=== PATIENT | female | born 1995 | race African-American/Black ===

== ENCOUNTER → 2020-01-24 | Outpatient (CLI) | payer OTHER | LOC: M LABSMTC 11:48 | PROVIDERS: ATTEND Family Medicine | DX: Z11.59 Encounter for screening for other viral diseases (principal); Z20.828 Contact with and (suspected) exposure to other viral communicable diseases ==

== ENCOUNTER 2020-10-19 02:28 | Emergency (ER) | payer OTHER ==
[~2020-10-19] VITALS: Ht 157.5 cm; Wt 134.6 kg
--- OUTSIDE RECORDS SUMMARY | 2020-10-19 02:38 | CCD | Continuity of Care Document ---
Author Author Marya MATIAS [facility] Organization Unknown Address [facility] [address] [place] [address] Phone [phone] Problems Active Problems Provider Date Family problems Arian Matias LCSW Onset: 06/26/2020 Major depressive disorder, single episode, unspecified Otoniel Matias LCSW Onset: 06/26/2020 Tobacco user Arian Matias LCSW Onset: 10/12/2020 Social History Type Date Description Comments Sex Unknown Allergies, Adverse Reactions, Alerts Active Allergies Reaction Severity Comments Date NKDA 07/11/2020 NKEA 07/11/2020 Kiwi 07/11/2020 Medications Active Medications SIG Qnty Indications Ordering Provide r Date Fluoxetine HCL 10mg Capsules 1 by mouth every day, Add To 20MG Daily To Total 30MG Daily. 30caps F32.9 Sylvester Gonzalez MD 09/06/2020 Fluoxetine HCL 20mg Capsules 1 by mouth every day 30caps F32.9 Sylvester Gonzalez MD 08/03/2020 History Medications No Active Medications Mile Ruiz RN 07/11/2020 - 08/03/2020 Immunizations Description No Information Available Vital Signs Date Vital Result Comment 07/11/2020 10:04am BP Systolic Sitting 144 mmHg BP Diastolic Sitting 89 mmHg Heart Rate 94 /min Body Temperature 98.2 F Oral Respiratory Rate 16 /min O2 % BldC Oximetry 100 % Weight 295.25 lb Weight 133.925 kg Height 62.5 inches 5'2.50" BMI (Body Mass Index) 53.1 kg/m2 BSA (Body Surface Area) 2.27 m2 Results Test Acquired Date Facility Test Result H/L Range Note [facility] 13 07/11/2020 Bobby benson Summary Report (Summary) FINAL 1, 2 PDF . 1 {DIAGNOSIS: F32.9~{MEDICATI ONS/DECLARED: NO MEDICATIONS DECLARED~{PRESCRIPTION INFO:~{PRESCRIPT 2 TOXASSURE SELECT 13 (MW) Test Result Flag Units Drug Present not Declared for Prescription Verification Carboxy-THC 50 UNEXPECTED ng/mg creat Carboxy-THC is a metabolite of tetrahydrocannabinol (THC). Source of THC is most commonly illicit, but THC is also present in a scheduled prescription medication. Test Result Flag Units Ref Range Creatinine 232 mg/dL >=20 Declared Medications: The flagging and interpretation on this report are based on the following declared medications. Unexpected results may arise from inaccuracies in the declared medications. No medication use reported. For clinical consultation, please call . Procedures Date Code Description Status 08/03/2020 33465 Psychiatric Diag Eval W/Medical Service Completed 06/26/2020 74174 Psychiatric Diagnostic Evaluatio n Completed Medical Devices Description No Information Available Encounters Description No Information Available Assessments Date Code Description Provider 10/12/2020 F32.9 Major depressive disorder, singl e episode, unspecified Arian Polly, [facility] 10/12/2020 Z63.0 Problems in relationship with sp ouse or partner Arian Polly, [facility] 10/12/2020 F17.210 Nicotine dependence, cigarettes, uncomplicated Arian Polly, [facility] 09/11/2020 F32.9 Major depressive disorder, singl e episode, unspecified Arian Polly, [facility] 09/11/2020 Z63.0 Problems in relationship with sp ouse or partner Arian [place], [facility] 09/06/2020 F32.9 Major depressive disorder, singl e episode, unspecified Diego Tucker PA-C 08/03/2020 F32.9 Major depressive disorder, singl e episode, unspecified Arian Polly, [facility] 08/03/2020 F32.9 Major depressive disorder, singl e episode, unspecified Diego Tucker PA-C 08/03/2020 Z63.0 Problems in relationship with sp ouse or partner Arian [place], [facility] 07/20/2020 F32.9 Major depressive disorder, singl e episode, unspecified Arian [place], [facility] 07/20/2020 Z63.0 Problems in relationship with sp ouse or partner Arian Polly, [facility] 07/11/2020 F32.9 Major depressive disorder, singl e episode, unspecified Mile Ruiz, JACKIE 07/11/2020 Z63.0 Problems in relationship with sp ouse or partner Mile Ruiz RN 07/06/2020 F32.9 Major depressive disorder, singl e episode, unspecified Arian [place], [facility] 07/06/2020 Z63.0 Problems in relationship with sp ouse or partner Arian Matias, [facility] 06/26/2020 F32.9 Major depressive disorder, singl e episode, unspecified Arian Matias, [facility] 06/26/2020 Z63.0 Problems in relationship with sp ouse or partner Arian Matias LCSW Plan of Treatment Future Appointment(s):* 11/09/2020 1:00 pm - Arian Matias LCSW at [facility] * 11/14/2020 11:20 am - Diego Tucker PA-C at [facility] Functional Status Description No Information Available Mental Status Description No Information Available Referrals Description No Information Available
--- OUTSIDE RECORDS SUMMARY | 2020-10-19 02:38 | CCD ---
Author Author [facility] Organization [facility] Address Unknown Phone Unavailable Care Team Providers Care Casework Manager Name Role Phone GM ROONEY Unavailable Unavailable MED[facility]_[id number], [phone] Unavailable Unavailable Solitario Gonzalez MD Unavailable Unavailable Solitario Gonzalez MD Unavailable Unavailable Solitario Gonzalez MD Unavailable Unavailable Solitario Gonzalez MD Unavailable Unavailable Solitario Gonzalez MD Unavailable Unavailable Solitario Gonzalez MD Unavailable Unavailable Solitario Gonzalez MD Unavailable Unavailable Solitario Gonzalez MD Unavailable Unavailable Solitario Gonzalez MD Unavailable Unavailable Solitario Gonzalez MD Unavailable Unavailable Solitario Gonzalez MD Unavailable Unavailable Solitario Gonzalez MD Unavailable Unavailable Solitario Gonzalez MD Unavailable Unavailable Solitario Gonzalez MD Unavailable Unavailable Solitario Gonzalez MD Unavailable Unavailable Solitario Gonzalez MD Unavailable Unavailable Solitario Gonzalez MD Unavailable Unavailable Solitario Gonzalez MD Unavailable Unavailable Solitario Gonzalez MD Unavailable Unavailable Solitario Gonzalez MD Unavailable Unavailable Solitario Gonzalez MD Unavailable Unavailable Solitario Gonzalez MD Unavailable Unavailable Solitario Gonzalez MD Unavailable Unavailable Solitario Gonzalez MD Unavailable Unavailable Solitario Gonzalez MD Unavailable Unavailable Solitario Gonzalez MD Unavailable Unavailable Solitario Gonzalez MD Unavailable Unavailable CHE, J SUSANNA PA Unavailable Unavailable CHE, J SUSANNA PA Unavailable Unavailable CHE, J SUSANNA PA Unavailable Unavailable CHE, J SUSANNA PA Unavailable Unavailable CHE, J SUSANNA PA Unavailable Unavailable CHE, J SUSANNA PA Unavailable Unavailable CHE, J SUSANNA PA Unavailable Unavailable CHE, J SUSANNA PA Unavailable Unavailable CHE, J SUSANNA PA Unavailable Unavailable CHE, J SUSANNA PA Unavailable Unavailable CHE, J SUSANNA PA Unavailable Unavailable CHE, J SUSANNA PA Unavailable Unavailable CHE, J SUSANNA PA Unavailable Unavailable CHE, J SUSANNA PA Unavailable Unavailable CHE, J SUSANNA PA Unavailable Unavailable CHE, J SUSANNA PA Unavailable Unavailable CHE, J SUSANNA PA Unavailable Unavailable CHE, J SUSANNA PA Unavailable Unavailable CHE, J SUSANNA PA Unavailable Unavailable CHE, J SUSANNA PA Unavailable Unavailable CHE, J SUSANNA PA Unavailable Unavailable CHE, J SUSANNA PA Unavailable Unavailable CHE, J SUSANNA PA Unavailable Unavailable CHE, J SUSANNA PA Unavailable Unavailable CHE, J SUSANNA PA Unavailable Unavailable CHE, J SUSANNA PA Unavailable Unavailable CHE, J SUSANNA PA Unavailable Unavailable NON, PHYSICIAN STAFF Unavailable Unavailable CHE, J SUSANNA PA Unavailable Unavailable CHE, J SUSANNA PA Unavailable Unavailable CHE, J SUSANNA PA Unavailable Unavailable CHE, J SUSANNA PA Unavailable Unavailable CHE, J SUSANNA PA Unavailable Unavailable CHE, J SUSANNA PA Unavailable Unavailable CHE, J SUSANNA PA Unavailable Unavailable CHE, J SUSANNA PA Unavailable Unavailable CHE, J SUSANNA PA Unavailable Unavailable CHE, J SUSANNA PA Unavailable Unavailable CHE, J SUSANNA PA Unavailable Unavailable CHE, J SUSANNA PA Unavailable Unavailable CHE, J SUSANNA PA Unavailable Unavailable CHE, J SUSANNA PA Unavailable Unavailable CHE, J SUSANNA PA Unavailable Unavailable CHE, J SUSANNA PA Unavailable Unavailable CHE, J SUSANNA PA Unavailable Unavailable CHE, J SUSANNA PA Unavailable Unavailable CHE, J SUSANNA PA Unavailable Unavailable CHE, J SUSANNA PA Unavailable Unavailable CHE, J SUSANNA PA Unavailable Unavailable CHE, J SUSANNA PA Unavailable Unavailable Liyah CHEEB PA Unavailable Unavailable Liyah CHEEB PA Unavailable Unavailable Liyah CHEEB PA Unavailable Unavailable Liyah CHEEB PA Unavailable Unavailable Liyah CHEEB PA Unavailable Unavailable Re-disclosure Warning The records that you are about to access may contain information from federally-assisted alcohol or drug abuse programs. If such information is present, then the following federally mandated warning applies: This information has been disclosed to you from records protected by federal confidentiality rules (42 CFR part 2). The federal rules prohibit you from making any further disclosure of this information unless further disclosure is expressly permitted by the written consent of the person to whom it pertains or as otherwise permitted by 42 CFR part 2. A general authorization for the release of medical or other information is NOT sufficient for this purpose. The Federal rules restrict any use of the information to criminally investigate or prosecute any alcohol or drug abuse patient.The records that you are about to access may contain highly sensitive health information, the redisclosure of which is protected by Article 27-F of the [facility] Public Health law. If you continue you may have access to information: Regarding HIV / AIDS; Provided by facilities licensed or operated by the [facility] Office of Mental Health; or Provided by the [facility] Office for People With Developmental Disabilities. If such information is present, then the following [facility] mandated warning applies: This information has been disclosed to you from confidential records which are protected by state law. State law prohibits you from making any further disclosure of this information without the specific written consent of the person to whom it pertains, or as otherwise permitted by law. Any unauthorized further disclosure in violation of state law may result in a fine or longterm sentence or both. A general authorization for the release of medical or other information is NOT sufficient authorization for further disc losure. Allergies and Adverse Reactions Type Description Substance Reaction Status Data Source(s ) No Known Allergies No Known Allergies [facility] Encounters Encounter Providers Location Date Indications Data Source(s ) Outpatient Attender: GM ROONEYConsultant: STAFF NON 10/12/2020 01:02:00 PM EST - 10/12/2020 01:02:00 PM [facility] Outpatient Attender: SUSANNA aranda: Sylvester Gonzalez MDConsultant: STAFF NON 09/11/2020 02:07:00 PM EST - 09/11/2020 02:07:00 PM EST [facility] Outpatient Attender: SUSANNA Queen aranda: Sylvester Gonzalez MDConsultant: STAFF NON 09/06/2020 12:45:00 PM EST - 09/06/2020 12:45:00 PM EST [facility] Outpatient Attender: SUSANNA MYERS [facility] 09/06 11:40:00 AM EST [facility] Outpatient Attender: GM Hernandez rrer: Sylvester Gonzalez MDConsultant: STAFF NON 08/03/2020 10:54:00 AM EDT - 08/03/2020 10:54:00 AM EDT [facility] Outpatient Attender: SUSANNA stricklandr: Sylvester Gonzalez MDConsultant: STAFF NON 08/03/2020 10:01:00 AM EDT - 08/03/2020 10:01:00 AM EDT [facility] Outpatient Attender: GM Flynnsultant: STAFF NON 07/20/2020 12:56:00 PM EDT - 07/20/2020 12:56:[address] [facility] Outpatient Attender: SUSANNA Queen aranda: Sylvester Gonzalez MDConsultant: STAFF NON 07/11/2020 10:02:00 AM EDT - 07/11/2020 10:02:00 AM EDT [facility] Outpatient Attender: [id number] [id number] 07/11/2020 10:00:00 AM EDT [facility] ([facility] Outpatient Attender: GM Hernandez rrer: Sylvester Gonzalez MDConsultant: STAFF NON 07/06/2020 10:03:00 AM EDT - 07/06/2020 10:03:00 AM EDT [facility] Outpatient Attender: GM Hernandez rrer: Sylvester Gonzalez MDConsultant: STAFF NON 06/26/2020 08:58:00 AM EDT - 06/26/2020 08:58:00 AM EDT [facility] Medications Medication Brand Name Start Date Product Form Dose Route Admi nistrative Instructions Pharmacy Instructions Status Indications Reaction Description Data Source(s) Fluoxetine 10 MG Oral Capsule Fluoxetine HCL 09/06/2020 12:00:[address] ORAL active [facility] ([facility]) Fluoxetine 20 MG Oral Capsule Fluoxetine HCL 08/03/2020 12:00:00 AM E DT ORAL active [facility] ([facility]) 20 mg 08/03/2020 12:00:00 AM EDT capsule 30 TAKE ONE CAPSULE BY MOUTH EVERY DAY TAKE ONE CAPSULE BY MOUTH EVERY DAY SOLD: 08/18/2020 [facility] No Active Medications 07/11/2020 12:00:00 AM EDT completed [facility] ([facility]) 800 mg 05/10/2020 12:00:00 AM EDT tablet 20 TAKE ONE TABLET BY MOUTH EVERY 6 HOURS NEEDED FOR PAIN TAKE ONE TABLET BY MOUTH EVERY 6 HOURS A S NEEDED FOR PAIN SOLD: 05/10/2020 [facility] 5-325 mg 05/10/2020 12:00:00 AM EDT tablet 10 TAKE ONE TABLET BY MOUTH EVERY 6 HOURS NEEDED FOR PAIN MAXIMUM DAILY DOSE = FOUR TABLETS TAKE ONE TABLET BY MOUTH EVERY 6 HOURS NEEDED FOR PAIN MAXIMUM DAILY DOSE = FOUR TABLETS SOLD: 05/10/2020 [facility] 800 mg 01/04/2020 12:00:00 AM EDT tablet 20 TAKE 1 TABLET BY MOUTH EVERY 6 HOURS NEEDED FOR PAIN TAKE 1 TABLET BY MOUTH EVERY 6 HOURS NEEDED FOR PAIN SOLD: 01/04/2020 [facility] 500 mg 01/04/2020 12:00:00 AM EDT tablet 21 TAKE 1 TABLET BY MOUTH EVERY 8 HOURS UNTIL FINISHED TAKE 1 TABLET BY MOUTH EVERY 8 HOURS UNTIL FINISHED SO LD: 01/04/2020 [facility] 0.12 % 01/04/2020 12:00:00 AM EDT mouthwash 473 SWISH AND SPIT 15 ML'S BY MOUTH FOR 30 SECONDS FOUR TIMES DAILY SWISH AND SPIT 15 ML'S BY MOUTH FOR 30 SECONDS FOUR TIMES DAILY SOLD: 01/04/2020 [facility] 5-325 mg 01/04/2020 12:00:00 AM EDT tablet 16 TAKE 1 TABLET BY MOUTH EVERY 6 HOURS NEEDED FOR PAIN MAX = 4 TABS/DAY TAKE 1 TABLET BY MOUTH EVERY 6 HOURS NEEDED FOR PAIN MAX = 4 TABS/DAY SOLD: 01/04/2020 [facility] Insurance Providers Payer name Policy type / Coverage type Policy ID Covered republican ID Covered republican's relationship to ring Policy Ring Plan Information [facility] [employer] [id number] [id number] [place] [id number] 18 [id number] [facility] [place] [place] [id number] 18 [id number] [facility] [employer] [id number] SP [id number] [facility] [employer] [id number] SP [id number] [employer] [place] [id number] HU2 [id number] [employer] [place] O [id number] S [id number] [place] [employer] [place] -I/P [id number] 01 [id number] N [employer]AL CLAIMS [place] -O/P [id number] 01 [id number] Problems, Conditions, and Diagnoses Code Display Name Description Problem Type Effective Dates Data Source(s) 500640324 Tobacco user Tobacco user Problem 10/12/2020 12:00:00 A M EST [facility] ([facility]) Major depressive disorder, single episod e, unspecified Major depressive disorder, single episode, unspecified Problem 06/26/2020 12:00:00 AM EDT [facility] ([facility]) [id number] Family problems Family problems Problem 06/26/2020 12:0 0:00 AM EDT [facility] ([facility]) Z630 Problems in relationship with spouse or partner Problems in relationship with spouse or partner Diagnosis 09/11/2020 02:07:00 PM [facility] F329 Major depressive disorder, single episod e, unspecified Major depressive disorder, single episode, unspecified Diagnosis 09/11/2020 02:07:00 PM [facility] Surgeries/Procedures Procedure Description Date Indications Data Source(s) Psychiatric Diag Eval W/Medical Service 08/03/2020 12: 00:00 AM EDT [facility] ([facility]) Psychiatric Diagnostic Evaluation 06/26/2020 12:00:00 AM EDT [facility] ([facility]) Results ID Date Data Source [id number] 07/11/2020 10:42:00 AM EDT [facility] ([facility]) Name Value Range Interpretation Code Description Data Yris rce(s) Supporting Document(s) PDF Laboratory test result [facility] ([facility]) {DIAGNOSIS: F32.9~{MEDICATIONS/DECLARED : NO MEDICATIONS DECLARED~{PRESCRIPTION INFO:~{PRESCRIPT Laboratory test finding (navigational concept) Laboratory test result [facility] ([facility]) {DIAGNOSIS: F32.9~{MEDICATIONS/DECLARED : NO MEDICATIONS DECLARED~{PRESCRIPTION INFO:~{PRESCRIPT ID Date Data Source [id number] 07/17/2020 10:17:00 AM EDT [facility] Name Value Range Interpretation Code Description Data Yris rce(s) Supporting Document(s) Drugs identified in Urine FINAL [facility] TOXASSURE SELECT 13 (MW) Test Result Flag UnitsDrug Present not Declared for Prescription Verification Carboxy-THC 50 UNEXPECTED ng/mg creat Carboxy-THC is a metabolite of tetrahydrocannabinol ( THC). Source of THC is most commonly illicit, but THC is also present in a scheduled prescription medication. T est Result Flag Units Ref Range Creatinine 232 mg/dL >=20 Declared Medications: The flagging and interpretation on this report are based on the following declared medications. Unexpected results may arise from inaccuracies in the declared medications. No medication use reported. For clinical consultation, please call . Report . [facility] ID Date Data Source [id number] 01/24/2020 11:40:00 AM EDT [facility] Name Value Range Interpretation Code Description Data Yris rce(s) Supporting Document(s) SARS CORONAVIRUS 2 RNA [facility] This lab was ordered by [facility] and reported by [facility]. Procedure Vital Signs ID Date Data Source UNK Name Value Range Interpretation Code Description Data Source(s) Body surface area Derived from formula 2.27 m2 2.27 m2 [facility] Body mass index (BMI) [Ratio] 53.1 kg/m2 53.1 k g/m2 [facility] ([facility]) Body height 62.5 [in_i] 62.5 [in_i] [facility] ([facility]) 5'2.50" Body weight 133.925 kg 133.925 kg [facility] ([facility]) Body weight 295.25 [lb_av] 295.25 [lb_av] [facility] ([facility]) Oxygen saturation in Arterial blood by Pulse oximetry 100 % 100 % [facility] ([facility]) Respiratory rate 16 /min 16 /min [facility] ( [facility]) Body temperature 98.2 [degF] 98.2 [degF] [facility] ([facility]) Oral Heart rate 94 /min 94 /[facility] Diastolic blood pressure--sitting 89 mm[Hg] 89 mm[Hg] [facility] Systolic blood pressure--sitting 144 mm[Hg] 144 mm[Hg] [facility])
--- OUTSIDE RECORDS SUMMARY | 2020-10-19 02:38 | CCD | Continuity of Care Document ---
Author Author Marya TUCKER PA-C Organization Unknown Address [facility] [address] [place] [address] Phone [phone] Problems Active Problems Provider Date Family problems Arian Matias LCSW Onset: 06/26/2020 Major depressive disorder, single episode, unspecified Otoniel Matias LCSW Onset: 06/26/2020 Social History Type Date Description Comments Sex [...] . Procedures Date Code Description Status 08/03/2020 00496 Psychiatric Diag Eval W/Medical Service Completed 06/26/2020 06767 Psychiatric Diagnostic Evaluatio n Completed Medical Devices Description No Information Available Encounters Type Date Location Provider Dx Diagnosis Office Visit 09/06/2020 12:40p [facility] Diego Tucker PA-C F32.9 Major depressive disorder, single episode, unspecified Assessments Date Code Description Provider 09/06/2020 F32.9 Major depressive disorder, singl e episode, unspecified Diego Tucker PA-C 08/03/2020 F32.9 Major depressive disorder, singl e episode, unspecified Arian Polly, [employer] 08/03/2020 F32.9 Major depressive disorder, singl e episode, unspecified Diego Tucker PA-C 08/03/2020 Z63.0 Problems in relationship with sp ouse or partner Arian Wake, [employer] SU[employer] 07/20/2020 F32.9 Major depressive disorder, singl e episode, unspecified Arian Polly, [employer] 07/20/2020 Z63.0 Problems in relationship with sp ouse or partner Arian Wake, [employer] SUPER[employer] 07/11/2020 F32.9 Major depressive disorder, singl e episode, unspecified Mile Ruiz RN 07/11/2020 Z63.0 Problems in relationship with sp ouse or partner Mile Ruiz, JACKIE 07/06/2020 F32.9 Major depressive disorder, singl e episode, unspecified Arian Wake, [employer] 07/06/2020 Z63.0 Problems in relationship with sp ouse or partner Arian Wake, [employer] SUPER[employer]OR 06/26/2020 F32.9 Major depressive disorder, singl e episode, unspecified Arian Wake, [employer] SUPER[employer] 06/26/2020 Z63.0 Problems in relationship with sp ouse or partner Arian Wake, [employer] SUPER[employer]OR Plan of Treatment Future Appointment(s):* 09/11/2020 2:00 pm - Arian Matias LCSW at [facility] Functional Status Description No Information Available Mental Status Description No Information Available Referrals Description No Information Available
--- OUTSIDE RECORDS SUMMARY | 2020-10-19 02:38 | CCD | Continuity of Care Document ---
Author Author Marya TUCKER PA-C Organization Unknown Address [facility] [address] [place] [address] Phone [phone] Problems Active Problems Provider Date Family problems Arian Matias LCSW Onset: 06/26/2020 Major depressive disorder, single episode, unspecified Otoniel Matias LCSW Onset: 06/26/2020 Social History Type Date Description Comments Sex Unknown Allergies, Adverse Reactions, Alerts Active Allergies Reaction Severity Comments Date NKDA 07/11/2020 NKEA 07/11/2020 Kiwi 07/11/2020 Medications Active Medications SIG Qnty Indications Ordering Provide r Date Fluoxetine HCL 20mg Capsules 1 by mouth [...] . Procedures Date Code Description Status 08/03/2020 44216 Psychiatric Diag Eval W/Medical Service Completed 06/26/2020 58192 Psychiatric Diagnostic Evaluatio n Completed Medical Devices Description No Information Available Encounters Description No Information Available Assessments Date Code Description Provider 08/03/2020 F32.9 Major depressive disorder, singl e episode, unspecified Diego Tucker PA-C 07/20/2020 F32.9 Major depressive disorder, singl e episode, unspecified Arian [place], [facility] 07/20/2020 Z63.0 Problems in relationship with sp ouse or partner Arian Dearborn, [employer] 07/11/2020 F32.9 Major depressive disorder, singl e episode, unspecified Mile Ruiz RN 07/11/2020 Z63.0 Problems in relationship with sp ouse or partner Mile Ruiz RN 07/06/2020 F32.9 Major depressive disorder, singl e episode, unspecified Arian Polly, [employer] 07/06/2020 Z63.0 Problems in relationship with sp ouse or partner Arian Dearborn, [employer] CAL[employer] 06/26/2020 F32.9 Major depressive disorder, singl e episode, unspecified Arian Polly, [employer] CAL[employer]RATOR 06/26/2020 Z63.0 Problems in relationship with sp ouse or partner Arian Dearborn, [employer] CAL[employer]RATOR Plan of Treatment Future Appointment(s):* 09/06/2020 12:40 pm - Diego Tucker PA-C at [facility] * 08/17/2020 3:00 pm - Arian Matias LCSW at [facility] Functional Status Description No Information Available Mental Status Description No Information Available Referrals Description No Information Available
--- OUTSIDE RECORDS SUMMARY | 2020-10-19 02:38 | CCD | Continuity of Care Document ---
Author Author Marya MATIAS [facility] Organization Unknown Address [facility] [address] [place] [address] Phone [phone] Problems Active Problems Provider Date Family problems [...] . Procedures Date Code Description Status 08/03/2020 42276 Psychiatric Diag Eval W/Medical Service Completed 06/26/2020 68916 Psychiatric Diagnostic Evaluatio n Completed Medical Devices Description No Information Available Encounters Description No Information Available Assessments Date Code Description Provider 08/03/2020 F32.9 Major depressive disorder, singl e episode, unspecified Diego Tucker PA-C 07/20/2020 F32.9 Major depressive disorder, singl e episode, unspecified Arian [place], [facility] 07/20/2020 Z63.0 Problems in relationship with sp ouse or partner Arian Lycoming, [facility] 07/11/2020 F32.9 Major depressive disorder, singl e episode, unspecified Mile Ruiz RN 07/11/2020 Z63.0 Problems in relationship with sp ouse or partner Mile Ruiz RN 07/06/2020 F32.9 Major depressive disorder, singl e episode, unspecified Arian [place], [facility] 07/06/2020 Z63.0 Problems in relationship with sp ouse or partner Arian Polly, [employer] 06/26/2020 F32.9 Major depressive disorder, singl e episode, unspecified Arian Polly, [facility] 06/26/2020 Z63.0 Problems in relationship with sp ouse or partner Arian Polly, [employer] Plan of Treatment Future Appointment(s):* 08/30/2020 3:00 pm - Arian Matias LCSW at [facility] * 09/06/2020 12:40 pm - Diego Tucker PA-C at [facility] * 08/17/2020 3:00 pm - Arian Matias LCSW at [facility] Functional Status Description No Information Available Mental Status Description No Information Available Referrals Description No Information Available
--- OUTSIDE RECORDS SUMMARY | 2020-10-19 02:38 | CCD | Continuity of Care Document ---
Author Author Marya MATIAS [facility] Organization Unknown Address [facility] [address] [place] [address] Phone [phone] Problems Active Problems Provider Date Family problems [...] Daily To Total 30MG Daily. 30caps F32.9 Syvlester Gonzalez MD 09/06/2020 Fluoxetine HCL 20mg Capsules [...] . Procedures Date Code Description Status 08/03/2020 18393 Psychiatric Diag Eval W/Medical Service Completed 06/26/2020 48919 Psychiatric Diagnostic Evaluatio n Completed Medical Devices Description No Information Available Encounters Type Date Location Provider Dx Diagnosis Office Visit 09/06/2020 12:[facility] Diego Tucker PA-C F32.9 Major depressive disorder, single episode, unspecified Assessments Date Code Description Provider 09/06/2020 F32.9 Major depressive disorder, singl e episode, unspecified Diego Tucker PA-C 08/03/2020 F32.9 Major depressive disorder, singl e episode, unspecified Arian [place], [facility] 08/03/2020 F32.9 Major depressive disorder, singl e episode, unspecified Diego Tucker PA-C 08/03/2020 Z63.0 Problems in relationship with sp ouse or partner Arian [place], [facility] 07/20/2020 F32.9 Major depressive disorder, singl e episode, unspecified Arian Polly, [facility] 07/20/2020 Z63.0 Problems in relationship with sp ouse or partner Arian [place], [facility] 07/11/2020 F32.9 Major depressive disorder, singl e episode, unspecified Mile Ruiz, JACKIE 07/11/2020 Z63.0 Problems in relationship with sp ouse or partner Mile Ruiz, JACKIE 07/06/2020 F32.9 Major depressive disorder, singl e episode, unspecified Arian [place], [facility] 07/06/2020 Z63.0 Problems in relationship with sp ouse or partner Arian Polly, [facility] 06/26/2020 F32.9 Major depressive disorder, singl e episode, unspecified Arian Polly, [facility] 06/26/2020 Z63.0 Problems in relationship with sp ouse or partner Arian Polly, [employer] Plan of Treatment No Information Available Functional Status Description No Information Available Mental Status Description No Information Available Referrals Description No Information Available
[2020-10-19] MEDS ORDERED: FLUO20CA22 (02:39)
[2020-10-19] MEDS ORDERED: FERR325T18 (02:39)
--- OUTSIDE RECORDS SUMMARY | 2020-10-19 04:30 | CCD ---
Author Author [facility] Organization [facility] Address Unknown Phone Unavailable Care Team Providers Care Barrel Washer Name Role Phone GM ROONEY Unavailable Unavailable MED[facility]_[id number], [phone] Unavailable Unavailable Solitario Gonzalez MD Unavailable Unavailable [...] J SUSANNA PA Unavailable Unavailable CHE, J USSANNA PA Unavailable Unavailable CHE, J SUSANNA PA Unavailable Unavailable CHE, J SUSANNA PA Unavailable Unavailable CHE, J SUSANNA PA Unavailable Unavailable CHE, J SUSANNA PA Unavailable Unavailable CHE, J SUSANNA PA Unavailable Unavailable CHE, J SUSANNA PA Unavailable Unavailable CHE, J SUSANNA PA Unavailable Unavailable CHE, J SUSANNA PA Unavailable Unavailable CHE, J SUSANNA PA Unavailable Unavailable CEH, J SUSANNA PA Unavailable Unavailable CHE, J [...] CHE, J SUSANNA PA Unavailable Unavailable CHE, Liyah SUSANNA PA Unavailable Unavailable CHE, Liyah SUSANNA PA Unavailable Unavailable CHE, Liyah SUSANNA PA Unavailable Unavailable CHE, Liyah SUSANNA PA Unavailable Unavailable CHE, Liyah GOMEZEB PA Unavailable Unavailable Re-disclosure Warning The records [...] is protected by Article 27-F of the [facility] Public Health law. If you continue you may have access to information: Regarding HIV / AIDS; Provided by facilities licensed or operated by the [facility] Office of Mental Health; or Provided by the [facility] Office for People With Developmental Disabilities. If such information is present, then the following [facility] mandated warning applies: This information has been [...] law may result in a fine or correction sentence or both. A general authorization for the release of medical or other information is NOT sufficient authorization for further disc losure. Allergies and Adverse Reactions Type Description Substance Reaction Status Data Source(s ) No Known Allergies No Known Allergies [facility] Encounters Encounter Providers Location Date Indications Data Source(s ) Outpatient Attender: GM ROONEYConsultant: STAFF NON 10/12/2020 01:02:00 PM EST - 10/12/2020 01:02:00 PM [facility] Outpatient Attender: SUSANNA aranda: Sylvester Gonzalez MDConsultant: STAFF NON 09/11/2020 02:07:00 PM EST - 09/11/2020 02:07:00 PM EST [facility] Outpatient Attender: SUSANNA stricklandr: Sylvester Gonzalez MDConsultant: STAFF NON 09/06/2020 12:45:00 PM EST - 09/06/2020 12:45:00 PM EST [facility] Outpatient Attender: SUSANNA MYERS [facility] 09/06 11:40:00 AM EST [facility] ([facility] Outpatient Attender: GM Hernandez rrer: Sylvester Gonzalez MDConsultant: STAFF NON 08/03/2020 10:54:00 AM EDT - 08/03/2020 10:54:00 AM EDT [facility] Outpatient Attender: SUSANNA stricklandr: Sylvester Gonzalez MDConsultant: STAFF NON 08/03/2020 10:01:00 AM EDT - 08/03/2020 10:01:00 AM EDT [facility] Outpatient Attender: GM ROONEYConsultant: STAFF NON 07/20/2020 12:56:00 PM EDT - 07/20/2020 12:56:00 PM EDT [facility] Outpatient Attender: SUSANNA Queen aranda: Sylvester Gonzalez MDConsultant: STAFF NON 07/11/2020 10:02:00 AM EDT - 07/11/2020 10:02:00 AM EDT [facility] Outpatient Attender: [id number] [facility]_510 [facility] 07/11/2020 10:00:00 AM EDT [facility] ([facility] Outpatient Attender: GM Hernandez rrer: Sylvester Gonzalez MDConsultant: STAFF NON 07/06/2020 10:03:00 AM EDT - 07/06/2020 10:03:00 AM EDT [facility] Outpatient Attender: GM Hernandez rrer: Sylvester Gonzalez MDConsultant: STAFF NON 06/26/2020 08:58:00 AM EDT - 06/26/2020 08:58:00 AM EDT [facility] Medications Medication Brand Name Start Date Product Form Dose Route Admi nistrative Instructions Pharmacy Instructions Status Indications Reaction Description Data Source(s) Fluoxetine 10 MG Oral Capsule Fluoxetine HCL 09/06/2020 12:00:[address] ORAL active [facility] ([facility]) Fluoxetine 20 MG Oral Capsule Fluoxetine HCL 08/03/2020 12:00:00 AM E DT ORAL active [facility] ([facility]) 20 mg 08/03/2020 12:00:00 AM EDT capsule 30 TAKE ONE CAPSULE BY MOUTH EVERY DAY TAKE ONE CAPSULE BY MOUTH EVERY DAY SOLD: 08/18/2020 [facility] No Active Medications 07/11/2020 12:00:00 AM EDT completed [facility] 800 mg 05/10/2020 12:00:00 AM EDT tablet [...] type / Coverage type Policy ID Covered democrat ID Covered democrat's relationship to ring Policy Ring Plan Information [facility] [employer] [id number] [place] [id number] [place] [id number] 18 [id number] [facility] [place] [id number] 18 [id number] [facility] [employer] [id number] SP [id number] [facility] [employer] [id number] SP [id number] [employer] [place] [id number] HU2 [id number] [employer] [place] O [id number] S [id number] [place] [employer] [place]S [place] -I/P [id number] 01 [id number] N [employer] [place] -O/P [id number] 01 [id number] Problems, Conditions, and Diagnoses Code Display Name Description Problem Type Effective Dates Data Source(s) 529484517 Tobacco user Tobacco user Problem 10/12/2020 12:00:00 A M EST [facility]) Major depressive disorder, single episod e, unspecified Major depressive disorder, single episode, unspecified Problem 06/26/2020 12:00:00 AM EDT [facility]) [id number] Family problems Family problems Problem 06/26/2020 12:0 0:00 AM EDT [facility]) Z630 Problems in relationship with spouse or partner Problems in relationship with spouse or partner Diagnosis 09/11/2020 02:07:00 PM [facility] F329 Major depressive disorder, single episod e, unspecified Major depressive disorder, single episode, unspecified Diagnosis 09/11/2020 02:07:[address] [facility] Surgeries/Procedures Procedure Description Date Indications Data Source(s) Psychiatric Diag Eval W/Medical Service 08/03/2020 12: 00:00 AM EDT [facility]) Psychiatric Diagnostic Evaluation 06/26/2020 12:00:00 AM EDT [facility]) Results ID Date Data Source [id number] 07/11/2020 10:42:00 AM EDT [facility] ([facility]) Name Value Range Interpretation Code Description Data Yris rce(s) Supporting Document(s) PDF Laboratory test result [facility] ([facility]) {DIAGNOSIS: F32.9~{MEDICATIONS/DECLARED : NO MEDICATIONS DECLARED~{PRESCRIPTION INFO:~{PRESCRIPT Laboratory test finding (navigational concept) Laboratory test result [facility]) {DIAGNOSIS: F32.9~{MEDICATIONS/DECLARED : NO MEDICATIONS DECLARED~{PRESCRIPTION INFO:~{PRESCRIPT ID Date Data Source [id number] 07/17/2020 10:17:00 AM EDT [facility] Name Value Range Interpretation Code Description Data Yris rce(s) Supporting Document(s) Drugs identified in Urine FINAL [facility] TOXASSURE SELECT 13 (MW) Test Result Flag [...] clinical consultation, please call . Report . [facility] ID Date Data Source [id number] 01/24/2020 11:40:00 AM EDT [facility] Name Value Range Interpretation Code Description Data Yris rce(s) Supporting Document(s) SARS CORONAVIRUS 2 RNA [facility] This lab was ordered by [facility] and reported by [facility]. Procedure Vital Signs ID Date Data Source UNK Name Value Range Interpretation Code Description Data Source(s) Body surface area Derived from formula 2.[address] [facility] ([facility]) Body mass index (BMI) [Ratio] 53.1 kg/m2 53.1 k g/m2 [facility] ([facility]) Body height 62.5 [in_i] 62.5 [in_i] [facility] ([facility]) 5'2.50" Body weight 133.925 kg 133.925 kg [facility] ([facility]) Body weight 295.25 [lb_av] 295.25 [lb_av] [facility] ([facility]) Oxygen saturation in Arterial blood by Pulse oximetry 100 % 100 % [facility] ([facility]) Res[facility] rate 16 /min 16 /min [facility] Body temperature 98.2 [degF] 98.2 [facility]degF] [facility] Oral Heart rate 94 /min 94 /min [facility] ([facility]) Diastolic blood pressure--sitting 89 mm[Hg] 89 mm[Hg] [facility] ([facility]) Systolic blood pressure--sitting 144 mm[Hg] 144 mm[Hg] [facility] ([facility])
[2020-10-19 04:36] VITALS: BP 131/74
== END 2020-10-19 04:45 | disposition home or self-care (01) ==
LOC: M ED 02:28
DX: J06.9 Acute upper respiratory infection, unspecified (principal); R63.0 Anorexia; F17.210 Nicotine dependence, cigarettes, uncomplicated; Z79.899 Other long term (current) drug therapy
CPT/HCPCS: 99283; U0003

== ENCOUNTER 2020-10-24 17:17 | Emergency (ER) | payer OTHER ==
[~2020-10-24] VITALS: Ht 157.5 cm; Wt 136.6 kg
[~2020-10-24 17:17] MED LIST: FERR325T18; FLUO20CA22
--- OUTSIDE RECORDS SUMMARY | 2020-10-24 17:26 | CCD ---
Author Author [facility] Organization [facility] Address Unknown Phone Unavailable Care Team Providers Care Trash Collector Supervisor Name Role Phone GM ROONEY Unavailable Unavailable [facility]_[id number], [phone] Unavailable Unavailable Solitario Gonzalez MD Unavailable Unavailable [...] J SUSANNA PA Unavailable Unavailable CHE, J SUASNNA PA Unavailable Unavailable CHE, J SUSANNA PA [...] law may result in a fine or nursing home sentence or both. A general authorization for the release of medical or other information is NOT sufficient authorization for further disc losure. Allergies and Adverse Reactions Type Description Substance Reaction Status Data Source(s ) No Known Allergies No Known Allergies [facility] Encounters Encounter Providers Location Date Indications Data Source(s ) Outpatient Attender: GM ROONEYConsultant: STAFF NON 10/12/2020 01:02:00 PM EST - 10/12/2020 01:02:00 PM [facility] Outpatient Attender: SUSANNA aranda: Sylvester Gonzalez MDConsultant: STAFF NON 09/11/2020 02:07:00 PM EST - 09/11/2020 02:07:00 PM EST [facility] Outpatient Attender: SUSANNA stricklandr: Sylvester Gonzalez MDConsultant: STAFF NON 09/06/2020 12:45:00 PM EST - 09/06/2020 12:45:00 PM EST [facility] Outpatient Attender: SUSANNA MYERS [facility] 09/06 11:40:00 AM EST [facility] ([facility] Outpatient Attender: GM Hernandez rrer: Sylvester Gonzalez MDConsultant: STAFF NON 08/03/2020 10:54:00 AM EDT - 08/03/2020 10:54:00 AM EDT [facility] Outpatient Attender: SUSANNA stricklandr: Sylvester Gonzalez MDConsultant: STAFF NON 08/03/2020 10:01:00 AM EDT - 08/03/2020 10:01:00 AM EDT [facility] Outpatient Attender: GM ROONEYConsultant: STAFF NON 07/20/2020 12:56:00 PM EDT - 07/20/2020 12:56:00 PM EDT [facility] Outpatient Attender: SUSANNA Queen aranda: Sylvester Gonzalez MDConsultant: STAFF NON 07/11/2020 10:02:00 AM EDT - 07/11/2020 10:02:00 AM EDT [facility] Outpatient Attender: [id number] [facility]_510 [facility] 07/11/2020 10:00:00 AM EDT [facility] ([facility] Outpatient Attender: GM Hernandez rrer: Sylvester Gonzalez MDConsultant: STAFF NON 07/06/2020 10:03:00 AM EDT - 07/06/2020 10:03:00 AM EDT [facility] Outpatient Attender: GM Hernandez rrer: Sylvester Gonzalez MDConsultant: STAFF NON 06/26/2020 08:58:00 AM EDT - 06/26/2020 08:58:00 AM EDT [facility] Medications Medication Brand Name Start Date Product Form Dose Route Admi nistrative Instructions Pharmacy Instructions Status Indications Reaction Description Data Source(s) Fluoxetine 10 MG Oral Capsule Fluoxetine HCL 09/06/2020 12:00:[address] ORAL active [facility] ([facility]) Fluoxetine 20 MG Oral Capsule Fluoxetine HCL 08/03/2020 12:00:00 AM E DT ORAL active [facility] ([facility]) 20 mg 08/03/2020 12:00:00 AM EDT capsule 30 TAKE ONE CAPSULE BY MOUTH EVERY DAY TAKE ONE CAPSULE BY MOUTH EVERY DAY SOLD: 08/18/2020 [facility] No Active Medications 07/11/2020 12:00:00 AM EDT completed [facility] ([facility]) 800 mg 05/10/2020 12:00:00 AM EDT tablet [...] relationship to ring Policy Ring Plan Information [employer] [id number] [place] [id number] [place] [place] [id number] 18 [id number] [facility] [place] [id number] 18 [id number] [facility] [employer] [id number] SP [id number] [facility] HU[employer] [id number] SP [id number] [employer] [place] [id number] HU2 [id number] [employer] [place] O [id number] S [id number] N REGIONAL CLAIMS [place] -I/P [id number] 01 [id number] N REGIONAL CLAIMS [place] -O/P [id number] 01 [id number] Problems, Conditions, and Diagnoses Code Display Name Description Problem Type Effective Dates Data Source(s) 760329511 Tobacco user Tobacco user Problem 10/12/2020 12:00:00 A M EST [facility] ([facility]) Major depressive disorder, single episod e, unspecified Major depressive disorder, single episode, unspecified Problem 06/26/2020 12:00:00 AM EDT [facility] ([facility]) [id number] Family problems Family problems Problem 06/26/2020 12:0 0:00 AM EDT [facility] ([facility]) Z630 Problems in relationship with spouse or partner Problems in relationship with spouse or partner Diagnosis 09/11/2020 02:07:00 PM [facility] F329 Major depressive disorder, single episod e, unspecified Major depressive disorder, single episode, unspecified Diagnosis 09/11/2020 02:07:00 PM [facility] Surgeries/Procedures Procedure Description Date Indications Data Source(s) Psychiatric Diag Eval W/Medical Service 08/03/2020 12: 00:00 AM EDT [facility] ([facility]) Psychiatric Diagnostic Evaluation 06/26/2020 12:00:00 AM EDT [facility] ([facility]) Results ID Date Data Source [id number] 10/19/2020 04:25:00 AM EST [facility] Name Value Range Interpretation Code Description Data Yris rce(s) Supporting Document(s) SARS coronavirus [address] [facility] [place] This lab was ordered by [facility] and reported by [facility]. ID Date Data Source [id number] 07/11/2020 10:42:00 AM EDT [facility] ([facility]) Name Value Range Interpretation Code Description Data Yris rce(s) Supporting Document(s) PDF Laboratory test result [facility] ([facility]) {DIAGNOSIS: F32.9~{MEDICATIONS/DECLARED : NO MEDICATIONS DECLARED~{PRESCRIPTION INFO:~{PRESCRIPT Laboratory test finding (navigational concept) Laboratory test result [facility] ([facility]) {DIAGNOSIS: F32.9~{MEDICATIONS/DECLARED : NO MEDICATIONS DECLARED~{PRESCRIPTION INFO:~{PRESCRIPT ID Date Data Source [id number] 07/17/2020 10:17:00 AM EDT [facility] Name Value Range Interpretation Code Description Data Yris rce(s) Supporting Document(s) Drugs identified in Urine FINAL [facility] TOXASSURE SELECT 13 (MW) Test Result Flag [...] clinical consultation, please call . Report . [facility] ID Date Data Source [id number] 01/24/2020 11:40:00 AM EDT [facility] Name Value Range Interpretation Code Description Data Yris rce(s) Supporting Document(s) SARS CORONAVIRUS 2 RNA [facility] This lab was ordered by [facility] and reported by [facility]. Procedure Vital Signs ID Date Data Source UNK Name Value Range Interpretation Code Description Data Source(s) Body surface area Derived from formula 2.27 m2 2.27 m2 [facility] ([facility]) Body mass index (BMI) [Ratio] 53.1 kg/m2 53.1 k g/m2 [facility] ([facility]) Body height 62.5 [in_i] 62.5 [in_i] [facility] ([facility]) 5'2.50" Body weight 133.925 kg 133.925 kg [facility] ([facility]) Body weight 295.25 [lb_av] 295.25 [lb_av] [facility] T ([facility]) Oxygen saturation in Arterial blood by Pulse oximetry 100 % 100 % [facility] ([facility]) Respiratory rate 16 /min 16 /min [facility] ( [facility]) Body temperature 98.2 [degF] 98.2 [degF] [place] ([facility]) Oral Heart rate 94 /min 94 /min [facility] ([facility]) Diastolic blood pressure--sitting 89 mm[Hg] 89 mm[Hg] [facility] ([facility]) Systolic blood pressure--sitting 144 mm[Hg] 144 mm[Hg] [facility] ([facility])
[2020-10-24] MEDS ORDERED: NAPR220C14 PO (17:27)
[2020-10-24 18:30] LABS: HEMATOCRIT 41.3 % (36.0-47.0); HEMOGLOBIN 12.8 g/dl (12.0-15.5); MEAN CORPUSCULAR HEMOGLOBIN 26.6 pg (27.0-33.0); MEAN CORPUSCULAR VOLUME 85.7 fl (80.0-96.0); PLATELET COUNT, AUTOMATED 169 10^3/uL (150-450); RED BLOOD COUNT 4.82 10^6/uL (4.00-5.40); WHITE BLOOD COUNT 4.7 10^3/uL (4.0-10.0)
--- OUTSIDE RECORDS SUMMARY | 2020-10-24 18:47 | CCD ---
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 Name Role Phone GM ROONEY Unavailable Unavailable [id number], [phone] Unavailable Unavailable Solitario Gonzalez MD Unavailable Unavailable [...] Unavailable Unavailable Solitario Gonzalez MD Unavailable Unavailable Soliatrio Gonzalez MD Unavailable Unavailable Solitario Gonzalez MD [...] Unavailable CHE, J SUSANNA PA Unavailable Unavailable HCE, J SUSANNA PA Unavailable Unavailable CHE, J [...] Unavailable CHE, J SUSANNA PA Unavailable Unavailable CHELiyah SUSANNA PA Unavailable Unavailable CHELiyah SUSANNA PA Unavailable Unavailable CHELiyah SUSANNA PA Unavailable Unavailable CHELiyah SUSANNA PA Unavailable Unavailable CHELiyah SUSANNA PA Unavailable Unavailable Re-disclosure Warning The records [...] is protected by Article 27-F of the [facility] Public Health law. If you continue you may have access to information: Regarding HIV / AIDS; Provided by facilities licensed or operated by the [facility] Office of Mental Health; or Provided by the [facility] Office for People With Developmental Disabilities. If such information is present, then the following [facility] mandated warning applies: This information has [...] law may result in a fine or detention sentence or both. A general authorization for the release of medical or other information is NOT sufficient authorization for further disc losure. Allergies and Adverse Reactions Type Description Substance Reaction Status Data Source(s ) No Known Allergies No Known Allergies [facility] Encounters Encounter Providers Location Date Indications Data Source(s ) Outpatient Attender: GM ROONEYConsultant: STAFF NON 10/12/2020 01:02:00 PM EST - 10/12/2020 01:02:00 PM [facility] Outpatient Attender: SUSANNA aranda: Sylvester Gonzalez MDConsultant: STAFF NON 09/11/2020 02:07:00 PM EST - 09/11/2020 02:07:[address] [facility] Outpatient Attender: SUSANNA stricklandr: Sylvester Gonzalez MDConsultant: STAFF NON 09/06/2020 12:45:00 PM EST - 09/06/2020 12:45:[address] [facility] Outpatient Attender: SUSANNA MYERS [facility] Practice 09/06 11:40:00 AM EST [facility] ([facility] Outpatient Attender: GM Hernandez rrer: Sylvester Gonzalez MDConsultant: STAFF NON 08/03/2020 10:54:00 AM EDT - 08/03/2020 10:54:[address] [facility] Outpatient Attender: SUSANNA stricklandr: Sylvester Gonzalez MDConsultant: STAFF NON 08/03/2020 10:01:00 AM EDT - 08/03/2020 10:01:[address] [facility] Outpatient Attender: GM ROONEYConsultant: STAFF NON 07/20/2020 12:56:00 PM EDT - 07/20/2020 12:56:00 PM EDT [facility] Outpatient Attender: SUSANNA Queen aranda: Sylvester Gonzalez MDConsultant: STAFF NON 07/11/2020 10:02:00 AM EDT - 07/11/2020 10:02:[address] [facility] Outpatient Attender: [phone] [id number] [facility] 07/11/2020 10:00:00 AM EDT [facility] ([facility] Outpatient Attender: GM Hernandez rrer: Sylvester Gonzalez MDConsultant: STAFF NON 07/06/2020 10:03:00 AM EDT - 07/06/2020 10:03:[address] [facility] Outpatient Attender: GM Hernandez rrer: Sylvester Gonzalez MDConsultant: STAFF NON 06/26/2020 08:58:00 AM EDT - 06/26/2020 08:58:[address] [facility] Medications Medication Brand Name Start Date Product Form Dose Route Admi nistrative Instructions Pharmacy Instructions Status Indications Reaction Description Data Source(s) Fluoxetine 10 MG Oral Capsule Fluoxetine HCL 09/06/2020 12:00:[address] ORAL active [facility] ([facility]) Fluoxetine 20 MG Oral Capsule Fluoxetine HCL 08/03/2020 12:00:00 AM E DT ORAL active [facility] ([facility]) 20 mg 08/03/2020 12:00:00 AM EDT capsule 30 TAKE ONE CAPSULE BY MOUTH EVERY DAY TAKE ONE CAPSULE BY MOUTH EVERY DAY SOLD: 08/18/2020 [facility] No Active Medications 07/11/2020 12:00:00 AM EDT completed [facility] ([facility]) 800 mg 05/10/2020 12:00:00 AM EDT [...] PAIN MAX = 4 TABS/DAY SOLD: 01/04/2020 [facility] Insurance Providers Payer name Policy type / Coverage type Policy ID Covered libertarian ID Covered libertarian's relationship to ring Policy Ring Plan Information [employer] [id number] [id number] [place] [id number] 18 [id number] [facility] [place] [id number] 18 [id number] [facility] HU[employer]NA [id number] SP [id number] [facility] HU[employer]NA [id number] SP [id number] [employer] [place] [id number] [id number] [employer] [place] O [id number] S [id number] [place] [employer] [place] [place] -[place]/P [id number] 01 [id number] N [employer] [place] [place] -O/P [id number] 01 [id number] Problems, Conditions, and Diagnoses Code Display Name Description Problem Type Effective Dates Data Source(s) 911537111 Tobacco user Tobacco user Problem 10/12/2020 12:00:00 A M EST [facility] ([facility]) Major depressive disorder, single episod e, unspecified Major depressive disorder, single episode, unspecified Problem 06/26/2020 12:00:00 AM EDT [facility] ([facility]) [id number] Family problems Family problems Problem 06/26/2020 12:0 0:00 AM EDT [facility] ([facility]) Z630 Problems in relationship with spouse or partner Problems in relationship with spouse or partner Diagnosis 09/11/2020 02:07:00 PM [facility] F329 Major depressive disorder, single episod e, unspecified Major depressive disorder, single episode, unspecified Diagnosis 09/11/2020 02:07:00 PM [facility] Surgeries/Procedures Procedure Description Date Indications Data Source(s) Psychiatric Diag Eval W/Medical Service 08/03/2020 12: 00:00 AM EDT [facility] ([facility]) Psychiatric Diagnostic Evaluation 06/26/2020 12:00:00 AM EDT [facility] ([facility]) Results ID Date Data Source [id number] 10/19/2020 04:25:00 AM EST [facility] Name Value Range Interpretation Code Description Data Yris rce(s) Supporting Document(s) SARS coronavirus 2 RNA Not Detected [facility] [place] This lab was ordered by [facility] and reported by [facility]. ID Date Data Source [id number] 07/11/2020 10:42:00 AM EDT [facility] ([facility]) Name Value Range Interpretation Code Description Data Yris rce(s) Supporting Document(s) PDF Laboratory test result [facility] ([facility]) {DIAGNOSIS: F32.9~{MEDICATIONS/DECLARED : NO MEDICATIONS DECLARED~{PRESCRIPTION INFO:~{PRESCRIPT Laboratory test finding (navigational concept) Laboratory test result [facility] ([facility]) {DIAGNOSIS: F32.9~{MEDICATIONS/DECLARED : NO MEDICATIONS DECLARED~{PRESCRIPTION INFO:~{PRESCRIPT ID Date Data Source [id number] 07/17/2020 10:17:[address] [facility] Name Value Range Interpretation Code Description Data Yris rce(s) Supporting Document(s) Drugs identified in Urine FINAL [facility] TOXASSURE SELECT 13 (MW) Test Result Flag [...] clinical consultation, please call . Report . [facility] ID Date Data Source [id number] 01/24/2020 11:40:00 AM EDT [facility] Name Value Range Interpretation Code Description Data Yris rce(s) Supporting Document(s) SARS CORONAVIRUS 2 RNA [facility] This lab was ordered by [facility] and reported by [facility]. Procedure Vital Signs ID Date Data Source UNK Name Value Range Interpretation Code Description Data Source(s) Body surface area Derived from formula 2.27 m2 2.27 m2 [facility] ([facility]) Body mass index (BMI) [Ratio] 53.1 kg/m2 53.1 k g/m2 [facility] ([facility]) Body height 62.5 [in_i] 62.5 [in_i] [facility] ([facility]) 5'2.50" Body weight 133.925 kg 133.925 kg [facility] ([facility]) Body weight 295.25 [lb_av] 295.25 [lb_av] [facility] T ([facility]) Oxygen saturation in Arterial blood by Pulse oximetry 100 % 100 % [facility] ([facility]) Respiratory rate 16 /min 16 /min [facility] ( [facility]) Body temperature 98.2 [degF] 98.2 [degF] [facility] ([facility]) Oral Heart rate 94 /min 94 /min [facility] ([facility]) Diastolic blood pressure--sitting 89 mm[Hg] 89 mm[Hg] [facility] ([facility]) Systolic blood pressure--sitting 144 mm[Hg] 144 mm[Hg] [facility] ([facility])
[2020-10-24 18:58] LABS: ANISOCYTOSIS 1+; ATYPICAL LYMPH 10 % (0-5); EOSINOPHILS 2 % (0-3); LYMPHOCYTES 54 % (16-44); METAMYELOCYTES 1 % (0-0); MONOCYTES 4 % (0-5); MYELOCYTES 1 % (0-0); NEUTROPHILS 14 % (28-66)
[2020-10-24 19:00] LABS: PLATELET ESTIMATE NORMAL (NORMAL)
[2020-10-24 19:01] LABS: BLOOD UREA NITROGEN 5 MG/DL (7-18); CALCIUM LEVEL 8.9 MG/DL (8.5-10.1); CARBON DIOXIDE LEVEL 31 MEQ/L (21-32); CHLORIDE LEVEL 105 MEQ/L (98-107); CREATININE FOR GFR 0.78 MG/DL (0.55-1.30); GLOMERULAR FILTRATION RATE > 60.0 (>60); GLUCOSE, FASTING 144 MG/DL (70-100); POTASSIUM SERUM 3.8 MEQ/L (3.5-5.1); SODIUM LEVEL 139 MEQ/L (136-145)
[2020-10-24 19:02] LABS: HCG, SERUM QUALITATIVE NEGATIVE (NEGATIVE)
--- NOTE | 2020-10-24 19:18 | REPVR ---
PROCEDURE INFORMATION: Exam: CT Head Without Contrast Exam date and time: 10/24/2020 7:10 PM Age: 25 years old Clinical indication: Pain; Headache; Additional info: Headache/neck pain TECHNIQUE: Imaging protocol: Computed tomography of the head without contrast. Radiation optimization: All CT scans at this facility use at least one of these dose optimization techniques: automated exposure control; mA and/or kV adjustment per patient size (includes targeted exams where dose is matched to clinical indication); or iterative reconstruction. COMPARISON: No relevant prior studies available. FINDINGS: Brain: Normal. No hemorrhage. Unremarkable white matter. No mass effect. Cerebral ventricles: No ventriculomegaly. Bones/joints: Unremarkable. No acute fracture. Paranasal sinuses: Retention cyst left maxillary sinus. Mastoid air cells: Visualized mastoid air cells are well aerated. Soft tissues: Unremarkable. IMPRESSION: No acute intracranial findings. Electronically signed by: Ciro Damon On 10/24/2020 19:17:54 PM
[2020-10-24] MEDS ORDERED: NS 1,000 ML IV ONE (19:30)
[2020-10-24] MEDS ORDERED: ACETAMINOPHEN TAB 650MG DOSE (2X325MG) PO ONE (20:30)
[2020-10-24 20:53] LABS: APPEARANCE, CSF CLEAR (CLEAR); COLOR, CSF COLORLESS (COLORLESS); CSF TUBE# CELL CNT TUBE 1
[2020-10-24 20:54] LABS: APPEARANCE, CSF CLEAR (CLEAR); COLOR, CSF COLORLESS (COLORLESS); CSF TUBE# CELL CNT TUBE 4
[2020-10-24 21:04] LABS: CSF TUBE# GLU TUBE 2; CSF TUBE# TP TUBE 2; GLUCOSE CSF 79 MG/DL (40-75); TOTAL PROTEIN,CSF 26 MG/DL (15-45)
[2020-10-24 22:40] VITALS: BP 138/88
== END 2020-10-24 23:53 | disposition home or self-care (01) ==
LOC: M ED 17:17
DX: R51.9 Headache, unspecified (principal); M54.2 Cervicalgia; D72.825 Bandemia; F17.200 Nicotine dependence, unspecified, uncomplicated

== ENCOUNTER 2020-10-27 20:28 | Emergency (ER) | payer OTHER ==
[~2020-10-27] VITALS: Ht 157.5 cm; Wt 137.1 kg
[~2020-10-27 20:28] MED LIST changes: +NAPR220C14 PO
[2020-10-27 21:32] LABS: BASO # 0.1 10^3/uL (0.0-0.2); BASO % 1.4 % (0.0-1.0); EOS # 0.1 10^3/uL (0.0-0.5); EOS % 1.7 % (0.0-3.0); HEMATOCRIT 40.7 % (36.0-47.0); HEMOGLOBIN 12.5 g/dl (12.0-15.5); LYMPH # 5.3 10^3/uL (1.5-5.0); LYMPH % 73.8 % (24.0-44.0); MEAN CORPUSCULAR HGB CONC 30.7 g/dl (32.0-36.5); MEAN CORPUSCULAR VOLUME 84.8 fl (80.0-96.0); MONO # 0.4 10^3/uL (0.0-0.8); NEUTROPHILS # 1.3 10^3/uL (1.5-8.5); NEUTROPHILS % 17.7 % (36.0-66.0); PLATELET COUNT, AUTOMATED 168 10^3/uL (150-450); WHITE BLOOD COUNT 7.1 10^3/uL (4.0-10.0)
[2020-10-27 22:06] LABS: MONO SCRN NEGATIVE (NEGATIVE)
[2020-10-27 22:25] VITALS: BP 137/99
[2020-10-30 10:41] LABS: VITAMIN B12 LEVEL 529 PG/ML (247-911)
== END 2020-10-27 22:32 | disposition home or self-care (01) ==
LOC: M ED 20:28
DX: B34.9 Viral infection, unspecified (principal); F17.200 Nicotine dependence, unspecified, uncomplicated; F12.10 Cannabis abuse, uncomplicated

== ENCOUNTER 2021-05-11 12:51 | Emergency (ER) | payer OTHER ==
[~2021-05-11] VITALS: Ht 157.5 cm; Wt 136.4 kg
--- NOTE | 2021-05-11 14:54 | REP ---
INDICATION: pain; reported inability to bear weight COMPARISON: None. TECHNIQUE: Four views right knee. FINDINGS: There is no evidence of acute fracture, dislocation, or intrinsic bone disease.There is a small suprapatellar effusion. IMPRESSION: No fracture or dislocation. Small suprapatellar effusion. <Electronically signed by Cuba Cortes > 05/11/21 [id number]
[2021-05-11] MEDS ORDERED: IBUPROFEN 800 MG TAB PO ONE (15:20)
== END 2021-05-11 16:19 | disposition home or self-care (01) ==
LOC: M ED 12:51
DX: S83.91XA Sprain of unspecified site of right knee, initial encounter (principal); M25.461 Effusion, right knee; Y04.8XXA Assault by other bodily force, initial encounter; Y92.019 Unspecified place in single-family (private) house as the place of occurrence of the external cause; Y93.9 Activity, unspecified; Y99.9 Unspecified external cause status; D64.9 Anemia, unspecified; F33.9 Major depressive disorder, recurrent, unspecified; F17.290 Nicotine dependence, other tobacco product, uncomplicated

== ENCOUNTER → 2022-05-22 | Outpatient (CLI) | payer OTHER ==
[2022-05-22 11:03] LABS: BASO % 0.5 % (0.0-1.0); EOS # 0.2 10^3/uL (0.0-0.5); EOS % 3.2 % (0.0-3.0); HEMATOCRIT 37.1 % (36.0-47.0); HEMOGLOBIN 11.5 g/dl (12.0-15.5); LYMPH # 2.6 10^3/uL (1.5-5.0); LYMPH % 41.6 % (24.0-44.0); MEAN CORPUSCULAR HEMOGLOBIN 27.1 pg (27.0-33.0); MEAN CORPUSCULAR VOLUME 87.5 fl (80.0-96.0); MONO # 0.6 10^3/uL (0.0-0.8); MONO % 9.5 % (2.0-8.0); NEUTROPHILS # 2.8 10^3/uL (1.5-8.5); NEUTROPHILS % 44.9 % (36.0-66.0); PLATELET COUNT, AUTOMATED 292 10^3/uL (150-450); RED BLOOD COUNT 4.24 10^6/uL (4.00-5.40); WHITE BLOOD COUNT 6.2 10^3/uL (4.0-10.0)
[2022-05-22 11:44] LABS: CHOLESTEROL RISK RATIO 3.042 (<5); FREE T4 0.86 NG/DL (0.76-1.46); HEMOGLOBIN A1c 5.8 %; THYROID STIMULATING HORMONE 1.07 uIU/ML (0.358-3.740)
== END ==
LOC: M PLALAB 09:07
PROVIDERS: ATTEND Student in an Organized Health Care Education/Training Program
DX: Z13.1 Encounter for screening for diabetes mellitus (principal)

== ENCOUNTER → 2022-10-23 | Outpatient (REF) ==
[2022-10-23 12:18] LABS: RSV AMPLIFICATION NEGATIVE (NEGATIVE)
== END ==
LOC: M EMP 11:20
PROVIDERS: ATTEND Family Medicine
DX: Z11.52 Encounter for screening for COVID-19 (principal)

== ENCOUNTER → 2022-10-25 | Outpatient (CLI) | payer OTHER | LOC: M SOG 08:51 | PROVIDERS: ATTEND Orthopaedic Surgery Hand Surgery | DX: M67.432 Ganglion, left wrist (principal) ==